=== PATIENT | female | born 1970 | race Caucasian/White ===

== ENCOUNTER 2024-03-28 09:11 | Outpatient (CLI) | payer OTHER, SELFPAY ==
--- NOTE | 2024-03-28 09:15 | MR_ITS ---
[address] [address] Phone:?[phone] Fax:?[phone] Referring Physician Information: Kevin Delgado M.D. [id number] [facility] [address] Phone:?[phone] Fax:?[phone] Patient:Gissel Barrera D.O.B:?1970 Sex:?Female Phone:?[phone] [facility] MRN:?[id number] Exam Date:?03/28/2024 EXAM: MRI of the LEFT KNEE, without contrast CLINICAL INFORMATION: Female, 53 years old, with knee pain. INDICATION: Evaluate for meniscus tear PRIOR SURGERY: None reported. PLAIN FILMS: Radiograph 03/22/2024. COMPARISONS: No prior MRIs available. TECHNICAL INFORMATION: Using a 1.5T MR scanner and a localizing surface coil: sagittals: PD, PDFS coronals: PD, T2FS axials: PD, PDFS SEDATION: None CONTRAST: None FINDINGS: Knee joint: Effusion: Small left knee effusion. Popliteal cyst: None. Loose bodies: None. Subcutaneous and extra-articular soft tissues: Moderate prepatellar subcutaneous soft tissue edema, without discrete bursitis Ligaments: ACL: The mid to distal ACL is somewhat attenuated and irregular which may suggest residua of chronic incomplete sprain injury, without complete disruption. PCL: Intact PCL, without acute or chronic injury. MCL: Intact MCL superficial and deep layers, without injury. LCL: Intact LCL, without injury. Posterolateral corner: No posterolateral corner soft tissue injury. Popliteus, biceps femoris, iliotibial band, popliteofibular ligament and lateral gastrocnemius are intact. Posteromedial corner: No posteromedial corner soft tissue injury. Semimembranosus, pes anserine tendons and posterior oblique ligament are without injury, tendinopathy or bursitis. Note is made of an accessory third head of the gastrocnemius (axial series 3 image 3). Extensor mechanism: Patellar tendon: Intact, without tendinopathy. Quadriceps tendon: Intact, without tendinopathy. Retinacula: Medial and lateral retinacula are intact. Fat pads: Unremarkable infrapatellar Hoffa's, quadriceps and prefemoral fat pads. Medial compartment: Medial meniscus: The medial meniscus is abnormal in appearance. There is horizontal superior articular surface cleavage tearing along the posterior horn extending to the level of the posterior horn/root, over a length of approximately 2.6 cm. Superimposed apical free edge tearing in this location, as well. The posterior root appears predominantly intact. Additionally, there is complex appearing tearing throughout the body segment with radial component at the junction of the posterior body and posterior horn. Poorly defined peripheral meniscal extrusion measuring 6 mm with 8 mm superior extension into the medial gutter at the level of the mid body. The anterior body appears intact. Medial femoral condyle: Grade III/IV chondromalacia along the posterior weightbearing medial femoral condyle peripherally. There is also full-thickness chondromalacia along the central weightbearing medial femoral condyle measuring 4 mm in greatest dimension (coronal series 8 image 17). Diffuse grade 2 chondral thinning. Medial tibial plateau: Grade III chondromalacia of the periphery of the medial tibial plateau centrally with underlying moderate marrow edema. Lateral compartment: Lateral meniscus: No articular surface, meniscosynovial junction or root tear. No displacement, extrusion or parameniscal cyst. Lateral femoral condyle: Grade 2 chondral thinning at the periphery of the lateral femoral condyle central weightbearing surface with mild osteophytosis. Lateral tibial plateau: Grade II chondromalacia along the posterior lateral tibial plateau. Patellofemoral joint: Patella: Broad-based grade 2 chondral thinning of the patellar articular cartilage with small regions of grade III chondromalacia of the medial patellar facet. Minimal medial and lateral patellar osteophytosis. Trochlea: Grade III chondromalacia of the superior lateral trochlea measuring 1.7 x 1.3 cm. Proximal tibiofibular joint: Unremarkable, without evidence of ligament sprain injury, joint effusion or adjacent marrow edema. Bones: No stress/occult fractures or other marrow edema/pathology. IMPRESSION: 1. Tearing throughout the medial meniscus as described above. This includes superior articular surface cleavage tearing at the level of the posterior horn, and complex tearing with radial component throughout the body segment. There is peripheral meniscal extrusion with superior extension of torn meniscal tissue into the medial gutter. 2. 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 3. No lateral meniscus tear. 4. Attenuation of the mid to distal ACL may reflect residua of chronic incomplete sprain injury. Correlate with instability on physical exam. 5. Incidentally noted accessory third head of the gastrocnemius, which may be associated with popliteal artery entrapment syndrome. 6. Small knee joint effusion. KME Electronically signed on 03/28/2024 7:24:00 PM by Krissy Leiva M.D.
== END 2024-03-28 09:12 | disposition home or self-care (01) ==
LOC: MRI 09:12
PROVIDERS: PCP Internal Medicine; Visit Provider Orthopaedic Surgery Sports Medicine
DX: M25.562 Pain in left knee (principal); S83.242A Other tear of medial meniscus, current injury, left knee, initial encounter; S83.422A Sprain of lateral collateral ligament of left knee, initial encounter; M25.462 Effusion, left knee
CPT/HCPCS: 73721